=== PATIENT | male | born 1940 ===

== ENCOUNTER → 2016-07-29 | Outpatient (CLI) | payer OTHER, BC ==
[2016-07-29 13:06] LABS: HEMATOCRIT 43.3 % (42-52); MEAN CELL VOLUME 92.9 fL (80-100); MEAN CORPUSCULAR HEMOGLOBIN 30.7 pg (25-34); MEAN PLATELET VOLUME 10.2 fL (7.4-10.4); PLATELET COUNT 169 K/uL (130-400); RED BLOOD COUNT 4.66 M/uL (4.7-6.1); WHITE BLOOD COUNT 16.89 K/uL (4.8-10.8)
[2016-07-29 13:11] LABS: CALCIUM 9.9 mg/dl (8.5-10.1)
[2016-07-29 13:12] LABS: ALT/SGPT 19 U/L (12-78); BLOOD UREA NITROGEN 23 mg/dl (7-18); CARBON DIOXIDE 27 mmol/L (21-32); CHLORIDE 102 mmol/L (98-107); CHOLESTEROL 104 mg/dl (0-200); GLUCOSE 116 mg/dl (70-99); POTASSIUM 3.9 mmol/L (3.5-5.1); SODIUM 139 mmol/L (136-145); TRIGLYCERIDES 164 mg/dl (0-150); VERY LOW DENSITY LIPOPROT CALC 33 mg/dl
[2016-07-29 13:15] LABS: ALB/GLOB RATIO 0.9 (0.9-2); ALKALINE PHOSPHATASE 62 U/L (45-117); AST/SGOT 20 U/L (15-37); HDL CHOLESTEROL 35 mg/dl; LDL CHOLESTEROL CALCULATED 36 mg/dl
[2016-07-29 13:21] LABS: ESTIMATED AVERAGE GLUCOSE 186 mg/dl; HA1C FLAG Normal (Normal)
[2016-07-29 14:04] LABS: BASO % 0.2 %; BASO ABS # 0.04 K/uL (0-0.2); COMPLETE YES; EOS % 4.3 %; GIANT PLATELETS 1+; IG% 0.2 %; LYMPH % 72.6 %; LYMPH ABS # 12.26 K/uL (1.2-3.4); MONO % 5.5 %; NEUT % 17.2 %; SMUDGE CELLS PRESENT
== END | disposition home or self-care (01) ==
LOC: C.LABMFLN 08:47
PROVIDERS: ATTEND Family Medicine
DX: E11.9 Type 2 diabetes mellitus without complications (principal); E78.5 Hyperlipidemia, unspecified; I10 Essential (primary) hypertension; D72.829 Elevated white blood cell count, unspecified; E55.9 Vitamin D deficiency, unspecified

== ENCOUNTER → 2017-06-04 | Outpatient (CLI) | payer OTHER, BC ==
[2017-06-04 13:05] LABS: HEMATOCRIT 41.3 % (42-52); MEAN CELL VOLUME 93.7 fL (80-100); MEAN CORPUSCULAR HEMOGLOBIN 31.7 pg (25-34); MEAN CORPUSCULAR HGB CONC 33.9 g/dl (32-36); MEAN PLATELET VOLUME 10.7 fL (7.4-10.4); PLATELET COUNT 148 K/uL (130-400); RED CELL DISTRIBUTION WIDTH CV 13.2 % (11.5-14.5); WHITE BLOOD COUNT 18.22 K/uL (4.8-10.8)
[2017-06-04 13:43] LABS: HEMOGLOBIN A1C 7.8 % (4.5-5.6)
[2017-06-04 13:58] LABS: BASO % 0.2 %; BASO ABS # 0.04 K/uL (0-0.2); EOS % 2.8 %; EOS ABS # 0.51 K/uL (0-0.5); IG# 0.03 K/uL (0.00-0.02); LYMPH % 71.5 %; LYMPH ABS # 13.03 K/uL (1.2-3.4); MONO % 5.7 %; MONO ABS # 1.03 K/uL (0.11-0.59); NEUT % 19.6 %; NEUT ABS # 3.58 K/uL (1.4-6.5)
[2017-06-04 16:12] LABS: ALBUMIN 3.6 gm/dl (3.4-5.0); ALKALINE PHOSPHATASE 57 U/L (45-117); ALT/SGPT 18 U/L (12-78); AST/SGOT 21 U/L (15-37); BLOOD UREA NITROGEN 22 mg/dl (7-18); CALCIUM 8.9 mg/dl (8.5-10.1); CARBON DIOXIDE 27 mmol/L (21-32); CHOLESTEROL 98 mg/dl (0-200); CREATININE 1.16 mg/dl (0.60-1.40); GLUCOSE 160 mg/dl (70-99); SODIUM 137 mmol/L (136-145)
[2017-06-04 16:13] LABS: LDL CHOLESTEROL CALCULATED 32 mg/dl
== END | disposition home or self-care (01) ==
LOC: C.LABMFLN 10:36
PROVIDERS: ATTEND Family Medicine
DX: E11.9 Type 2 diabetes mellitus without complications (principal); E78.5 Hyperlipidemia, unspecified; E55.9 Vitamin D deficiency, unspecified; C91.10 Chronic lymphocytic leukemia of B-cell type not having achieved remission